=== PATIENT | female | born 1945 | race Caucasian/White ===

== ENCOUNTER → 2017-09-25 11:29 | Outpatient (CLI) | payer MEDICARE | END | disposition home or self-care (01) | LOC: D.RAD 11:29 | DX: L40.0 Psoriasis vulgaris (principal); L82.1 Other seborrheic keratosis; L71.8 Other rosacea ==

== ENCOUNTER → 2017-11-04 10:04 | Outpatient (CLI) | payer MEDICARE | END | disposition home or self-care (01) | LOC: D.CT 10:04 | DX: R91.8 Other nonspecific abnormal finding of lung field (principal) ==

== ENCOUNTER 2018-05-22 08:00 | Outpatient (CLI) | payer MEDICARE | END 2018-05-22 09:00 | disposition home or self-care (01) | LOC: D.MAMMO 08:00 | DX: Z12.31 Encounter for screening mammogram for malignant neoplasm of breast (principal) ==

== ENCOUNTER → 2018-08-28 12:49 | Outpatient (CLI) | payer OTHER | END | disposition home or self-care (01) | LOC: D.CT 12:49 | DX: J98.4 Other disorders of lung (principal) ==

== ENCOUNTER → 2020-10-16 14:25 | Outpatient (CLI) | payer OTHER ==
[2020-09-15 12:28] VITALS: BMI 27.0
[~2020-10-16 14:25] MED LIST: ALBUTEROL SULF8.5 GM INH; AZITHROMYCIN500 MG PO; BAYER CHEWABLE81 MG PO; DYAZIDE PO; K-TAB10 MEQ PO; LIPITOR20 MG PO; MEDROL DOSE PACK4 MG PO; METOPROLOL TART50 MG PO; MICARDIS20 MG PO; TESSALON PERLE100 MG PO
[2020-10-18 10:02] VITALS: BMI 26.3
== END | disposition home or self-care (01) ==
LOC: D.LAB 14:25
PROVIDERS: ATTEND Internal Medicine Pulmonary Disease
DX: Z11.52 Encounter for screening for COVID-19 (principal)

== ENCOUNTER 2020-10-18 07:19 | Day surgery (SDC) | payer OTHER ==
[~2020-10-18] VITALS: Ht 162.6 cm; Wt 69.4 kg
[~2020-10-18 07:19] MED LIST changes: -BAYER CHEWABLE81 MG PO
[2020-10-18 08:02] LABS: BASOPHILS 0.4 % (0-2); EOSINOPHILS 1.4 % (0-7); HEMATOCRIT 40.8 % (36.0-48.0); HEMOGLOBIN 14.2 g/dL (12-16); IMMATURE GRANULOCYTES 0.1 % (0-5); LYMPHOCYTE ABS# 1.17 10x3/uL (1.18-3.74); LYMPHOCYTES 15.3 % (15-50); MCH 31.3 pg (26.0-34.0); MCHC 34.8 g/dL (31.0-37.0); MCV 90.1 fL (80.0-100.0); MEAN PLATELET VOLUME 9.8 fL (7.4-10.4); MONOCYTES 7.8 % (2-11); NEUTROPHIL ABS# 5.74 10x3/uL (1.56-6.13); PLATELET COUNT 294 10x3/uL (130-400); RBC 4.53 10x6/uL (4.00-5.40); RDW 12.9 % (11.5-14.5); WBC 7.7 10x3/uL (4.8-10.8)
[2020-10-18 08:10] LABS: ANION GAP 11.8 mmol/L (8-16); CALCIUM 9.3 mg/dL (8.5-10.1); CARBON DIOXIDE 26.5 mmol/L (21.0-32.0); CREATININE - SERUM 0.9 mg/dL (0.6-1.3); POTASSIUM - SERUM 3.3 mmol/L (3.5-5.1)
[2020-10-18] MEDS ORDERED: BAYER CHEWABLE81 MG PO (09:58)
[2020-10-18 10:02] VITALS: BP 156/61; Ht 162.6 cm; Wt 69.4 kg
--- NOTE | 2020-10-18 14:50 | NUR ---
1318 IV REMOVED AND PRESSURE HELD.
== END 2020-10-18 13:30 | disposition home or self-care (01) ==
LOC: D.OPS 07:19
PROVIDERS: ATTEND Internal Medicine Pulmonary Disease
DX: R04.2 Hemoptysis (principal); R06.09 Other forms of dyspnea; I10 Essential (primary) hypertension; R91.8 Other nonspecific abnormal finding of lung field; R93.89 Abnormal findings on diagnostic imaging of other specified body structures; J44.9 Chronic obstructive pulmonary disease, unspecified; Z87.891 Personal history of nicotine dependence

== ENCOUNTER → 2020-11-27 13:46 | Outpatient (CLI) | payer OTHER ==
[2020-10-18 10:02] VITALS: BMI 26.3
[~2020-11-27 13:46] MED LIST changes: +BAYER CHEWABLE81 MG PO
[2020-11-27 15:38] LABS: SARS-CoV-2 ANTIGEN NEGATIVE- SARS-COV-2 (NEGATIVE)
== END | disposition home or self-care (01) ==
LOC: D.LAB 13:46
PROVIDERS: ATTEND Internal Medicine Pulmonary Disease
DX: Z11.52 Encounter for screening for COVID-19 (principal)

== ENCOUNTER → 2020-12-01 15:33 | Outpatient (CLI) | payer OTHER ==
[2020-10-18 10:02] VITALS: BMI 26.3
== END | disposition home or self-care (01) ==
LOC: D.RT 11-16 13:00
PROVIDERS: ATTEND Internal Medicine Hematology & Oncology
DX: J44.9 Chronic obstructive pulmonary disease, unspecified (principal); Z11.52 Encounter for screening for COVID-19

== ENCOUNTER → 2021-01-25 12:35 | Outpatient (CLI) | payer OTHER ==
[2020-10-18 10:02] VITALS: BMI 26.3
== END | disposition home or self-care (01) ==
LOC: D.HCCECHO 12:35
PROVIDERS: ATTEND Internal Medicine Cardiovascular Disease
DX: I25.10 Atherosclerotic heart disease of native coronary artery without angina pectoris (principal)